=== PATIENT | male | born 1995 | race Two or more races ===

== ENCOUNTER 2019-10-09 09:49 | Emergency (ER) | payer MEDICAID, OTHER ==
[~2019-10-09] VITALS: Ht 167.6 cm; Wt 70.8 kg
[2019-10-09 10:03] VITALS: BP 131/79
[2019-10-09] MEDS ORDERED: METHOCARBAMOL 500 MG TAB PO ONE (12:00)
[2019-10-09] MEDS ORDERED: KETOROLAC TROMETH 60MG/2ML VIAL IM ONE (12:00)
== END 2019-10-09 12:22 | disposition home or self-care (01) ==
LOC: ER 09:55
DX: S01.01XA Laceration without foreign body of scalp, initial encounter (principal); R07.89 Other chest pain; F17.210 Nicotine dependence, cigarettes, uncomplicated; V43.53XA Car driver injured in collision with pick-up truck in traffic accident, initial encounter; Y93.89 Activity, other specified; Y92.488 Other paved roadways as the place of occurrence of the external cause; Y99.8 Other external cause status
CPT/HCPCS: 12001; 71046; 96372; 99283; J1885